=== PATIENT | female | born 1975 | race Caucasian/White ===

== ENCOUNTER 2020-10-28 12:04 | Inpatient (IN) | payer SELFPAY ==
[2020-10-28 11:35] VITALS: BMI 30.9
[2020-10-28 12:30] VITALS: BP 106/71; PULSE 93; RESP 20; TEMP 37.1; O2SAT 96
[2020-10-28 14:00] VITALS: BP 106/71; PULSE 93; RESP 20; TEMP 37.1; O2SAT 96
[2020-10-28] MEDS: nicotine 21 mg Patch 1 PATCH TRANSDERMA (17:13)
[2020-10-28 19:48] VITALS: BP 111/73; PULSE 95; RESP 17; TEMP 36.7; O2SAT 95
[2020-10-28] MEDS: hyDROXYzine 25 mg Capsule 50 MG PO (20:40)
[2020-10-28] MEDS: trazodone 50 mg Tablet PO (20:40)
--- NOTE | 2020-10-28 21:32 | PC.NURSE ---
Patient request something for sleep and anxiety. Trazodone 50mg PO and visteril 50mg PO given at 20:40.
[2020-10-29 06:00] VITALS: BP 111/69; PULSE 81; RESP 16; TEMP 36.1; O2SAT 92
--- NOTE | 2020-10-29 09:39 | P.HP_ITS ---
Providers/Chief Complaint Admitting Physician: Boaz Greene DO Chief Complaint: mood disorder,nos HPI NPU History of Present Illness Britany Suárez is a 44 year old female with history of depression and anxiety presented to an outlying emergency department with complaint of worsening depression, tearful episodes, suicidal ideation as well as complaint of auditory hallucinations. Patient reports that her depressive symptoms have been getting worse over the past couple of weeks in which she experiences tearful episodes, decreased energy and interest, decreased motivation, poor sleep, poor appetite. She denies any history of suicide attempts but reports history of cutting behavior as a teenager with no subsequent episodes. She reports that she has been experiencing worsening suicidal ideation but has no active intent or plan. Patient also reports ongoing, near daily anxiety symptoms and reports that it is worsened by social settings. She reports excessive worry and difficulty controlling her worrying but denies any panic symptoms or panic attacks. Patient denies any visual hallucinations but reports ongoing auditory hallucinations which she reports is exacerbated by use of methamphetamine but states that she also experiences them during periods between methamphetamine use. Reports her last use of methamphetamine was a couple of days ago and states that she uses methamphetamine on about a weekly basis and has been using since age 28 intermittently. She denies any other illicit substance use and denies any use of alcohol. Patient reports that she had been on psychotropic medication for depression and anxiety but states that she has been noncompliant and has not taken any medication for over a month. Review of Systems General: Reports: 10 or more systems reviewed and unremarkable except in HPI and below Meds NPU Home Medications Medication Instructions Recorded Confirmed Last Taken Type No Known Home Medications 10/28/20 10/28/20 Unknown History Allergies Allergy/AdvReac Type Severity Reaction Status Date / Time No Known Allergies Allergy Verified 10/28/20 12:56 PFS NPU PFSH: Social History Smoking and tobacco status: current some day smoker cigarettes Smoking risk assessment/counseling performed?: Yes Other Psychiatric History: Other Psychiatric History: Reports first contact with mental health was in her early 40s, states that she has been treated with antidepressants but has been largely noncompliant Reports last psychiatric hospitalization was 3 months ago, does not recall age of first psychiatric hospitalization but was in the last 4 years Denies any history of suicide attempt, reports history of cutting behavior as a teenager with no subsequent episodes Mental Status Exam MSE Comments: Appears stated age, disheveled, tired appearing, sitting up on her bed, wearing hospital scrubs, poor eye contact Psychomotor slowing, no agitation Speech is slow, fair articulation, not pressured I feel depressed, congruent affect, not labile Alert and oriented to person, place, time, situation Memory and concentration are fair per interview Intellectual functioning appears to be average at best based on vocabulary, interview Thought process, linear with occasional delays, no flight of ideas, no looseness of associations Thought content, no delusions, does not appear to be attending to any internal stimuli, no suicidal or homicidal ideation Insight and judgment appear to be fair Vitals/I&O/Wt Last Vital Signs Temp 97.0 F L 10/29/20 06:00 Pulse 81 10/29/20 06:00 Resp 16 10/29/20 06:00 BP 111/69 10/29/20 06:00 Pulse Ox 92 10/29/20 06:00 Weight last 48 hrs Weight 81.647 kg A&P Assessment and plan (1) Depressive disorder: Status: Acute (2) Methamphetamine abuse: Status: Acute (3) Anxiety disorder, unspecified: Status: Acute Qualifiers: Anxiety disorder type: unspecified anxiety disorder Qualified Code(s): F41.9 - Anxiety disorder, unspecified (4) Suicidal ideation: Status: Acute Additional A&P Information Patient with unclear past psychiatric history although reports previously being treated for depression anxiety presents with worsening suicidal thoughts, depression, tearful episodes, anxiety in the context of recent methamphetamine use. Patient reports being noncompliant and has not taken any psychotropic medication for over a month and would likely benefit from starting a low-dose antidepressant and titrating up for effect as well as starting a low-dose antipsychotic targeting her auditory hallucinations and augmenting her antidepressant. VOLUNTARY ADMIT to inpatient psychiatry START sertraline 50 mg daily targeting depressive symptoms and anxiety symptoms START risperidone 0.25 mg twice daily targeting auditory hallucinations as well as augmentation of antidepressant Encourage patient participate in unit activities to include group sessions, unit milieu Coordinate with manager social responsibility for post discharge medication management and therapy follow-up Involuntary Hold Information 96 Hour Hold: 96 Hour Involuntary Admission: No Attestations NPU Medical Necessity Statement*: Require psychiatric hospitalization for medication stabilization, observation for suicidal ideation and behaviors, coordination for safe discharge Anticipate hospital stay to exceed 2 midnights Time Spent in Patient Care: Greater than 35 minutes (>than 50% of time spent in counselling and/or direct pt care on unit) . 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
[2020-10-29] MEDS: nicotine 21 mg Patch 1 PATCH TRANSDERMA (10:38)
[2020-10-29] MEDS: sertraline 50 mg Tablet PO (10:41)
[2020-10-29] MEDS: risperiDONE 0.25 mg Tablet PO ×2 (10:41→21:27)
[2020-10-29 14:00] VITALS: BP 105/71; PULSE 86; RESP 20; TEMP 37.1; O2SAT 94
[2020-10-29 19:50] VITALS: BP 109/72; PULSE 77; RESP 18; TEMP 36.4; O2SAT 96
[2020-10-29 20:18] VITALS: BMI 30.9
[2020-10-29] MEDS: trazodone 50 mg Tablet PO (21:27)
--- NOTE | 2020-10-29 22:45 | PC.NURSE ---
Patient requested Trazodone with her scheduled med. Trazodone 50mg PO given at 21:27.
--- NOTE | 2020-10-30 03:45 | PC.NURSE ---
PM ASSESSMENT PT WAS RESTING IN HER ROOM, HEART/LUNG SOUNDS ARE WNL, V/S ARE WNL, PT DENIES AH/VH AT THIS TIME, PT DENIES PAIN, DENIES SI/HI, HOWEVER, REPORTS FEELING DEPRESSED, WHILE TALKING ABOUT HER CHILDREN, PT BEGAN TO CRY, PT STATED, IM NOT ALRIGHT, BUT I DON'T HAVE A CHOICE BUT TO KEEP ON GOING. NO ONE REALLY CARES HOW I FEEL INSIDE. PT LEANED OVER ON THE NURSE SEEKING COMFORT. PT STATED, IM OVERWHELEMED IM TIRED AND NO ONE SEEMS TO SEE WHAT I AM GOING THRU . PT STAYED IN HER BED, SHE HAS NOT LEFT HER ROOM, SHE DIDN'T WANT A SNACK, AND SAYS SHE JUST WANTS TO SLEEP. RN OFFERED MEDICATION TO LESSON ANXIETY LEVEL, PT REFUSED, RN EXPRESSED POTENTIAL NEED OF MEDICATION TO MED NURSE. PT WAS TEARFUL AT TIMES IN HER ROOM, HOWEVER, SHE IS ISOLATING HERSELF AT THIS TIME, WILL CONTINUE TO OBSERVE
[2020-10-30 05:51] VITALS: BP 132/87; PULSE 78; RESP 18; TEMP 36.2; O2SAT 94
[2020-10-30] MEDS: sertraline 50 mg Tablet PO (08:10)
[2020-10-30] MEDS: risperiDONE 0.25 mg Tablet PO ×2 (08:10→21:31)
--- NOTE | 2020-10-30 13:14 | PM.NPN ---
Subjective NPU Subjective: Interval history: Continues to report intermittent depressive symptoms but denies any interval suicidal ideation Denies any interval auditory hallucinations, denies any visual destinations, denies any delusions Reports being compliant with her medication, denies any medication side effects Reports fair sleep overnight, felt tired this morning Reports appetite has been improving Mental Status Exam MSE Comments: Lying in bed, somewhat unkempt, disheveled, tired appearing, fair eye contact Psychomotor activity is neither increased nor decreased, no agitation Speech is normal rate, normal volume, spontaneous, not pressured I feel little better, constricted affect, not labile Alert and oriented to person, place, time, situation Memory and concentration are fair per interview Thought process, linear with occasional delays, no flight of ideas, no looseness of associations Thought content, no delusions, does not appear to be attending to any internal stimuli, no suicidal or homicidal ideation Insight and judgment appear to be fair Vitals/I&O/Wt Last Vital Signs Temp 97.2 F L 10/30/20 05:51 Pulse 78 10/30/20 05:51 Resp 18 10/30/20 05:51 BP 132/87 10/30/20 05:51 Pulse Ox 94 10/30/20 05:51 Weight last 48 hrs Weight 81.647 kg A&P Assessment and plan (1) Suicidal ideation: Status: Acute (2) Depressive disorder: Status: Acute (3) Anxiety disorder, unspecified: Status: Acute Qualifiers: Anxiety disorder type: unspecified anxiety disorder Qualified Code(s): F41.9 - Anxiety disorder, unspecified (4) Methamphetamine abuse: Status: Acute Additional A&P Information Ongoing depressive symptoms, denies any interval auditory hallucinations INCREASE to sertraline 100 mg daily targeting depressive symptoms, anxiety symptoms CONTINUE other medication, continue to monitor Involuntary Hold Information 96 Hour Hold: 96 Hour Involuntary Admission: No Attestations NPU Medical Necessity Statement*: Continues to require psychiatric hospitalization for medication stabilization, coordination for safe discharge Coding Level of Care Code Acute [place]front Director for [facility] Diagnoses Suicidal ideation R45.851 Depressive disorder F32.9 Anxiety disorder, unspecified F41.9 Anxiety disorder type: unspecified anxiety disorder Methamphetamine abuse F15.10
[2020-10-30 13:24] VITALS: BP 119/74; PULSE 74; RESP 16; TEMP 36.3; O2SAT 96
[2020-10-30] MEDS: nicotine 2 mg Gum BUCCAL (18:17)
--- NOTE | 2020-10-30 19:55 | PM.NPTHER ---
NPU Therapy Progress Note Therapy Progress Note Date: 10/30/20 Time In: 18:45 Time Out: 19:00 Symptoms Reported: none reported Mood: friendly, groggy due to resting in bed Progress Note: TELEVISION ENGINEERING TEACHER approached Britany resting in bed. She speaks with BETZY but after offering to talk further she says no i'm fine . When asked if she has ever considered outpatient services she says she saw a therapist over a computer several times but quit going due to feeling that was weird . She feels she has no ability to see outpatient providers due to not having insurance. Intervention: BETZY listened and provided support. She was educated about [facility] funding and offered to send contact information for [facility] service provider in her area and she agrees to this. Reported Goals Before Discharge: get discharged so i can smoke a cigarette!
[2020-10-30 22:00] VITALS: BP 134/86; PULSE 72; RESP 16; TEMP 36.2; O2SAT 96
[2020-10-31 06:00] VITALS: BP 138/80; PULSE 75; RESP 16; TEMP 37.1; O2SAT 98
[2020-10-31] MEDS: sertraline 50 mg Tablet 100 MG PO (08:57)
[2020-10-31] MEDS: risperiDONE 0.25 mg Tablet PO (08:57)
--- NOTE | 2020-10-31 09:00 | PM.NDC ---
Diagnoses at Discharge Discharge Diagnosis (1) Suicidal ideation: Status: Acute (2) Depressive disorder: Status: Acute (3) Anxiety disorder, unspecified: Status: Acute Qualifiers: Anxiety disorder type: unspecified anxiety disorder Qualified Code(s): F41.9 - Anxiety disorder, unspecified (4) Methamphetamine abuse: Status: Acute Reason for Visit Reason for Visit: mood disorder,nos Hospital Course Hospital Course 44 year old female with history of depression and anxiety presented to an [facility] emergency department with complaint of worsening depression, tearful episodes, suicidal ideation as well as complaint of auditory hallucinations. She initially continued to complain of depressive symptoms, sertraline was increased to sertraline 100 mg daily and was started on risperidone 0.25 mg twice daily for reported auditory hallucinations. Patient had tested positive for amphetamines which likely exacerbated both her mood and perceptual disturbance with some improvement after starting medication and no reports of any medication side effects. Patient participated in unit milieu with no reports of any behavioral disturbances. Patient was not suicidal and denied any psychotic symptoms at the time of discharge and did not appear to pose an imminent threat of harm to self or others. Low to moderate risk of harm to self given no current suicidal ideation and no current complaint of any psychiatric symptoms although patient continues to use methamphetamine or is noncompliant with her medication or medication management follow-up, could lead to unexpected, impulsive behavior. Risk mitigation included psychiatric hospitalization, medication stabilization, recommendation to abstain from the use of substances and alcohol as well as the need for compliance with medication and medication management follow-up. Patient was able to communicate her understanding of the need to abstain from the use of substances and alcohol as well as the need for compliance with her medication, medication management and therapy follow-up in order to further mitigate her risk of harm to self and others. Involuntary Hold Information 96 Hour Hold: 96 Hour Involuntary Admission: No Mental Status Exam MSE Comments: Sitting up on her bed, appropriately groomed and dressed, calm, cooperative, good eye contact Psychomotor activity is neither increased nor decreased, no agitation Speech is normal rate, normal volume, spontaneous, not pressured I feel good, full range of affect, not labile Alert and oriented to person, place, time, situation Memory and concentration are fair to intact per interview Thought process, linear with occasional delays, no flight of ideas, no looseness of associations Thought content, no delusions, does not appear to be attending to any internal stimuli, no suicidal or homicidal ideation Insight and judgment appear to be fair to intact Discharge Data Vitals: Last Vital Signs Temp 98.8 F 10/31/20 06:00 Pulse 75 10/31/20 06:00 Resp 16 10/31/20 06:00 BP 138/80 10/31/20 06:00 Pulse Ox 98 10/31/20 06:00 Discharge Plan Discharge Patient Disposition: Home Condition: Stable Prescriptions: New risperidone 0.25 mg Tablet 0.25 mg PO 0900,2100 Qty: 60 RF: 0 sertraline 50 mg Tablet 100 mg PO DAILY Qty: 30 RF: 0 No Action No Known Home Medications RF: 0 Discharge Orders: Discharge Order (Routine); Ordered 10/31/20 Ordered By: Boaz Greene Referrals: [facility] [Other] (Please bring I.D., Proof of residency (mail or bill sent to you at current address.) Proof of income (two most recent check stubs) Proof of household income, and proof of insurance. Walk in Tuesday-Tuesday between the hours of 8AM-4PM for admission assessment. ) [facility] [Other] - 11/06/20 2:40 pm (Please bring a form of ID and any insurance cards. ) Discharge Diet: Usual diet Discharge Activity: Resume usual activity Patient Instructions: Opioid Safety Discharge Attestations NPU Time Spent in Discharge Care*: greater than 30 min Status at Discharge: Cognitive status at discharge: cognitively intact, Behavioral status at discharge: cooperative, Functional status at discharge: independent ambulation Overall status at discharge: patient is back to baseline Coding Level of Care Code Acute [facility] note Diagnoses Suicidal ideation R45.851 Depressive disorder F32.9 Anxiety disorder, unspecified F41.9 Anxiety disorder type: unspecified anxiety disorder Methamphetamine abuse F15.10
[2020-10-31 09:22] VITALS: BP 138/80; PULSE 75; RESP 16; TEMP 37.1; O2SAT 98
--- NOTE | 2020-10-31 12:29 | PC.RESP ---
Smoking Cessation information sent to patient
== END 2020-10-31 09:34 | disposition home or self-care (01) | DRG 897 ==
PROVIDERS: Admitting Provider Psychiatry & Neurology Psychiatry; Visit Provider Psychiatry & Neurology Psychiatry
DX: F15.151 Other stimulant abuse with stimulant-induced psychotic disorder with hallucinations (principal); R45.851 Suicidal ideations; F32.9 Major depressive disorder, single episode, unspecified; F41.9 Anxiety disorder, unspecified; Z91.14 Patient's other noncompliance with medication regimen

== ENCOUNTER 2021-03-05 00:45 | Inpatient (IN) | payer MEDICAID, SELFPAY ==
[2021-03-05 00:45] VITALS: BMI 30.6
[2021-03-05 01:39] VITALS: BP 143/97; PULSE 111; RESP 18; TEMP 36.6; O2SAT 97
--- NOTE | 2021-03-05 03:25 | PC.NURSE ---
Direct Admit 45/F SI/AH +METH voluntary direct admit from Sharyn Escoto Presented to ED in [place], [place], with depression, anxiety, and uncontrolled anger. She is says she is no longer SI, but at times she hears voices. These episodes have increased over the last 2 weeks. She states, I don't have any energy unless I use meth. I have been using it since I was about 28 years old, and now I smoke about 1/2gram every 2-3 days, I need rehab, because I would smoke it every day if I had it. Pt is tired, laying her head down on the table during assessment, cooperative, at times tearful. Pt says her anxiety is daily and is worse when she is in social settings, pt endorses excessive worry and increasing episodes of insomnia. Denies HI/VH but states she is SI/AH most days. Pt states she Does not take her medication as often as she should.
[2021-03-05 06:00] VITALS: BP 135/76; PULSE 99; RESP 17; TEMP 36.3; O2SAT 92
[2021-03-05] MEDS: risperiDONE 0.25 mg Tablet PO ×2 (09:14→18:00)
[2021-03-05] MEDS: lisinopril 20 mg Tablet PO (09:14)
[2021-03-05] MEDS: sertraline 50 mg Tablet 100 MG PO (09:14)
--- NOTE | 2021-03-05 13:48 | PM.NHP ---
Providers/Chief Complaint Admitting Physician: Danilo Barbosa MD Chief Complaint: depression and anger HPI NPU History of Present Illness Britany Suárez is a 45 year old female who presented to an outside hospital with depression and active use wanting to get help.She was transferred to [facility] and admitted to the neuropsychiatric unit for definitive treatment of those issues. She presents today reporting that she has had probably five inpatient hospitalizations and has had limited outpatient services. She endorses being on Zoloft, Lisinopril, Trazodone and Risperdal, but it is not clear as to when her last dose was because she said she stopped. She was hospitalized here in October and an excerpt of that note is included below for context, and she denies substantive changes. She reports that she knows the medication was helpful but started struggling with her addiction and stopped taking it. She endorses smoking about a pack and a half of cigarettes a day, denies significant alcohol use, denies marijuana use, or any other illicit drugs except for methamphetamine. She has never been to a rehab or had a DUI. She was fairly upset because she wanted to get some help, but she did not want to be sent so far away and she feels the hospital that she went to really did not collaborate with her, kind of forced her hand, but we did discuss her desire to go to a rehab and that we could get her connected with the resources so she can follow-up on that once she was discharged. She was open to having her medications restarted, and we discussed the risks, benefits, and alternatives of restarting the medication, and she understood and agreed to proceed as is documented in this note. We agreed that she should start on the lower dose than she had previously been on of her Zoloft because it had been so long since her last dose. She has never had a suicide attempt in the past and was able to contract for safety. We agreed that if she was still feeling well tomorrow after being monitored for another day, that we would talk about the possibility of discharge. Per her 10/29/2020 [facility] inpatient psychiatric eval: History of Present Illness Britany Suárez is a 44 year old female with history of depression and anxiety presented to an outlying emergency department with complaint of worsening depression, tearful episodes, suicidal ideation as well as complaint of auditory hallucinations. Patient reports that her depressive symptoms have been getting worse over the past couple of weeks in which she experiences tearful episodes, decreased energy and interest, decreased motivation, poor sleep, poor appetite. She denies any history of suicide attempts but reports history of cutting behavior as a teenager with no subsequent episodes. She reports that she has been experiencing worsening suicidal ideation but has no active intent or plan. Patient also reports ongoing, near daily anxiety symptoms and reports that it is worsened by social settings. She reports excessive worry and difficulty controlling her worrying but denies any panic symptoms or panic attacks. Patient denies any visual hallucinations but reports ongoing auditory hallucinations which she reports is exacerbated by use of methamphetamine but states that she also experiences them during periods between methamphetamine use. Reports her last use of methamphetamine was a couple of days ago and states that she uses methamphetamine on about a weekly basis and has been using since age 28 intermittently. She denies any other illicit substance use and denies any use of alcohol. Patient reports that she had been on psychotropic medication for depression and anxiety but states that she has been noncompliant and has not taken any medication for over a month. Meds NPU Home Medications Medication Instructions Recorded Confirmed Last Taken Type lisinopril 20 mg PO DAILY 30 Days #30 tab 03/06/21 Unknown Rx risperidone 0.25 mg PO BID 30 Days #60 tab 03/06/21 Unknown Rx sertraline 50 mg PO 0900 30 Days #30 tab 03/06/21 Unknown Rx trazodone 100 mg PO 2100 30 Days #30 tab 03/06/21 Unknown Rx Allergies Allergy/AdvReac Type Severity Reaction Status Date / Time No Known Allergies Allergy Verified 03/05/21 01:30 [facility] NPU PFSH: Family History (Updated 03/05/21 @ 01:33 by Suzanne Velez RN) Mother Hypertension Anxious mood Depressed Sister Hypertension Anxious mood Depressed Social History (Updated 03/05/21 @ 03:41 by Suzanne Velez RN) Smoking and tobacco status: current every day smoker cigarettes Packs smoked per day: 1.5 Years cigarettes smoked: 34 (began at 11 years of age) Number of cigarettes per day: 1-5 Smoking risk assessment/counseling performed?: Yes Substance/Drug Use: current Substance/Drug use frequency: few times a week Substance/Drug use type: Methamphetamine Desire information about substance/drug rehabilitation?: Yes Counseling given: Yes Type of substance drug use counseling provided: support program information Adopted: No Caregiver/support person: No Lives independently: No (with her mother) Household members: family Housing: House Highest education level completed: High School Graduate service: No Current occupational status: unemployed Current occupational exposures/hazards: No Pets and animals: No History of recent travel: No Leisure activites: games Special christal needs: No Agree to transfusion: Yes Financial difficulty paying for basics: Hard Mental Status Exam MSE Comments: This is an obese, female, in [facility] hospital scrubs with adequate grooming, and eye contact. No abnormal movements except for mild psychomotor retardation. Cooperative with exam in mild distress. Speech was decreased rate and volume. Mood described as groggy from being restarted on her medications; affect appeared subdued. Thought process, organized. Thought content: patient denied any suicidal or homicidal ideation, there were no delusions reported or noted, patient denied any auditory or visual hallucinations. Attention, concentration, and memory appear intact but were not formally tested. He is alert and oriented times three. Insight and judgment appear fair. Impulse control is limited. Vitals/I&O/Wt Last Vital Signs Temp 97.3 F L 03/05/21 06:00 Pulse 99 03/05/21 06:00 Resp 17 03/05/21 06:00 BP 135/76 03/05/21 06:00 Pulse Ox 92 03/05/21 06:00 Weight last 48 hrs Weight 81 kg Weight 81 kg A&P Assessment and plan (1) Methamphetamine abuse: Status: Acute (2) Anxiety disorder, unspecified: Status: Acute Qualifiers: Anxiety disorder type: unspecified anxiety disorder Qualified Code(s): F41.9 - Anxiety disorder, unspecified (3) Depressive disorder: Status: Acute Additional A&P Information This is a 45 year old, female, with a long history of mental health and addiction issues, who presents continuing to struggle with her addiction and her mental health as she has been off of her medication, open to a referral for rehab and aftercare. RECOMMENDATION AND PLAN: 1. Continue current medication except decrease Zoloft to 50 mg po qam. 2. Encourage individual, group, and milieu therapy. 3. Continue q-15 minute checks for safety. 4. Encourage sober living treatment after discharge at the highest level of care to which she is willing to commit. She endorses a plan to follow-up with rehab when available. Involuntary Hold Information 96 Hour Hold: 96 Hour Involuntary Admission: No Attestations NPU Medical Necessity Statement*: Inpatient observation is medically necessary and the clinically appropriate intervention, at this time. If patient still appears safe in the morning, we will consider discharge tomorrow. Likely length of stay 1 to 3 days. 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
[2021-03-05 14:00] VITALS: BP 104/63; PULSE 82; RESP 18; TEMP 36.8; O2SAT 92
[2021-03-05 20:28] VITALS: BP 112/61; PULSE 66; RESP 16; TEMP 36.8; O2SAT 91
[2021-03-05] MEDS: trazodone 100 mg Tablet PO (21:50)
[2021-03-06 06:00] VITALS: BP 107/64; PULSE 89; RESP 16; TEMP 36.5; O2SAT 92
[2021-03-06] MEDS: lisinopril 20 mg Tablet PO (09:57)
[2021-03-06] MEDS: risperiDONE 0.25 mg Tablet PO (09:57)
[2021-03-06] MEDS: sertraline 50 mg Tablet PO (09:58)
--- NOTE | 2021-03-06 13:54 | PM.NDC ---
Diagnoses at Discharge Discharge Diagnosis (1) Methamphetamine abuse: Status: Acute (2) Anxiety disorder, unspecified: Status: Acute Qualifiers: Anxiety disorder type: unspecified anxiety disorder Qualified Code(s): F41.9 - Anxiety disorder, unspecified (3) Depressive disorder: Status: Acute Reason for Visit Reason for Visit: depression and anger Brief History: History of Present Illness Britany Suárez is a 45 year old female who presented to an outside hospital with depression and active use wanting to get help.She was transferred to [facility] and admitted to the neuropsychiatric unit for definitive treatment of those issues. She presents today reporting that she has had probably five inpatient hospitalizations and has had limited outpatient services. She endorses being on Zoloft, Lisinopril, Trazodone and Risperdal, but it is not clear as to when her last dose was because she said she stopped. She was hospitalized here in October and an excerpt of that note is included below for context, and she denies substantive changes. She reports that she knows the medication was helpful but started struggling with her addiction and stopped taking it. She endorses smoking about a pack and a half of cigarettes a day, denies significant alcohol use, denies marijuana use, or any other illicit drugs except for methamphetamine. She has never been to a rehab or had a DUI. She was fairly upset because she wanted to get some help, but she did not want to be sent so far away and she feels the hospital that she went to really did not collaborate with her, kind of forced her hand, but we did discuss her desire to go to a rehab and that we could get her connected with the resources so she can follow-up on that once she was discharged. She was open to having her medications restarted, and we discussed the risks, benefits, and alternatives of restarting the medication, and she understood and agreed to proceed as is documented in this note. We agreed that she should start on the lower dose than she had previously been on of her Zoloft because it had been so long since her last dose. She has never had a suicide attempt in the past and was able to contract for safety. We agreed that if she was still feeling well tomorrow after being monitored for another day, that we would talk about the possibility of discharge. Per her 10/29/2020 [facility] inpatient psychiatric eval: History of Present Illness Britany Suárez is a 44 year old female with history of depression and anxiety presented to an outlying emergency department with complaint of worsening depression, tearful episodes, suicidal ideation as well as complaint of auditory hallucinations. Patient reports that her depressive symptoms have been getting worse over the past couple of weeks in which she experiences tearful episodes, decreased energy and interest, decreased motivation, poor sleep, poor appetite. She denies any history of suicide attempts but reports history of cutting behavior as a teenager with no subsequent episodes. She reports that she has been experiencing worsening suicidal ideation but has no active intent or plan. Patient also reports ongoing, near daily anxiety symptoms and reports that it is worsened by social settings. She reports excessive worry and difficulty controlling her worrying but denies any panic symptoms or panic attacks. Patient denies any visual hallucinations but reports ongoing auditory hallucinations which she reports is exacerbated by use of methamphetamine but states that she also experiences them during periods between methamphetamine use. Reports her last use of methamphetamine was a couple of days ago and states that she uses methamphetamine on about a weekly basis and has been using since age 28 intermittently. She denies any other illicit substance use and denies any use of alcohol. Patient reports that she had been on psychotropic medication for depression and anxiety but states that she has been noncompliant and has not taken any medication for over a month. Hospital Course Hospital Course She quickly acclimated to the individual, group and milieu therapies provided. She felt like she was backed up against the wall and forced to come to the hospital however she was open to being connected with services and overall treatment and we restarted her on Zoloft. She had modest improvement during the hospitalization and was able to contract for safety prior to discharge. At the outside hospital, patient had routine laboratory studies which were within normal limits except for few outliers. Additionally there was a general medical evaluation which was also within normal limits and revealed no new acute processes. Discharge Summary: At the time of discharge, she denied psychosis or lethality. Mood and anxiety were well managed. Patient endorsed a plan to avoid all drugs of abuse and follow-up with the aftercare recommendations of the treatment team. Patient was evaluated and deemed to be absent credible lethality, and had achieved the maximum benefit from an inpatient hospitalization, so was discharged. Involuntary Hold Information 96 Hour Hold: 96 Hour Involuntary Admission: No Mental Status Exam MSE Comments: This is an obese, female, in [facility] scrubs with adequate grooming, and eye contact. No abnormal movements except for mild psychomotor retardation. Cooperative with exam in no acute distress. Speech was normal rate and volume. Mood described as better; affect congruent. Thought process, organized. Thought content: patient denied any suicidal or homicidal ideation, there were no delusions reported or noted, patient denied any auditory or visual hallucinations. Attention, concentration, and memory appear intact but were not formally tested. He is alert and oriented times three. Insight and judgment appear fair. Impulse control is limited, but improving. Discharge Data Vitals: Last Vital Signs Temp 97.7 F 03/06/21 06:00 Pulse 89 03/06/21 06:00 Resp 16 03/06/21 06:00 BP 107/64 03/06/21 06:00 Pulse Ox 92 03/06/21 06:00 Discharge Plan Discharge Patient Disposition: Home Condition: Stable Prescriptions: New sertraline 50 mg Tablet 50 mg PO 0900 30 Days Qty: 30 RF: 1 Continued lisinopril 20 mg Tablet 20 mg PO DAILY 30 Days Qty: 30 RF: 1 trazodone 100 mg tablet 100 mg PO 2100 30 Days Qty: 30 RF: 1 Changed risperidone 0.25 mg tablet 0.25 mg PO BID 30 Days Qty: 60 RF: 1 Discontinued sertraline 50 mg tablet 100 mg PO 0900 RF: 0 Discharge Orders: Discharge Order (Routine); Ordered 03/06/21 Ordered By: Danilo Barbosa Referrals: [facility] [Other] (Visit any time Tuesday-Tuesday from 8:00am-5:00 to complete an initial assessment. ) [facility] [Other] Discharge Diet: Regular Discharge Activity: Resume usual activity Patient Instructions: Opioid Safety Discharge Attestations NPU Time Spent in Discharge Care*: less than 30 min Specific Discharge Activities: Specific discharge activities: educating patient, discussing with case planner/social workers/dc planners, documenting/other paperwork and evaluating patient/reviewing data Status at Discharge: Cognitive status at discharge: cognitively intact, Behavioral status at discharge: cooperative, Coding Level of Care Code Acute g FW DC note Diagnoses Methamphetamine abuse F15.10 Anxiety disorder, unspecified F41.9 Anxiety disorder type: unspecified anxiety disorder Depressive disorder F32.9
[2021-03-06 13:58] VITALS: BP 107/64; PULSE 89; RESP 16; TEMP 36.5; O2SAT 92
[2021-03-06 14:00] VITALS: BP 107/64; PULSE 89; RESP 16; TEMP 36.5; O2SAT 92
--- NOTE | 2021-03-06 16:14 | PC.RESP ---
SMOKING CESSATION INFORMATION SENT TO PATIENT.
== END 2021-03-06 04:15 | disposition home or self-care (01) | DRG 881 ==
PROVIDERS: Admitting Provider Psychiatry & Neurology Psychiatry; Visit Provider Psychiatry & Neurology Psychiatry
DX: F32.9 Major depressive disorder, single episode, unspecified (principal); F41.9 Anxiety disorder, unspecified; F17.210 Nicotine dependence, cigarettes, uncomplicated; F15.10 Other stimulant abuse, uncomplicated; Z82.49 Family history of ischemic heart disease and other diseases of the circulatory system; Z81.8 Family history of other mental and behavioral disorders; Z56.0 Unemployment, unspecified